=== PATIENT | male | born 1975 | race Caucasian/White ===

== ENCOUNTER 2017-01-10 11:39 | Emergency (ER) | payer MEDICAID, OTHER ==
[2017-01-10 12:02] VITALS: BP 132/82; PULSE 83; RESP 16; TEMP 98.1; O2SAT 97
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
[2017-01-10] MEDS ORDERED: TDAP ADULT 0.5 ML INJ (BOOSTRIX) IM ONE (12:30)
[2017-01-10] MEDS ORDERED: CEPHALEXIN 500 MG CAP PO ONE (12:49)
[2017-01-10] MEDS ORDERED: ceFAZolin 1 GM VIAL ONE (13:07)
== END 2017-01-10 13:40 | disposition home or self-care (01) ==
LOC: CED 11:39
DX: S61.412A Laceration without foreign body of left hand, initial encounter (principal); Z72.0 Tobacco use; W22.8XXA Striking against or struck by other objects, initial encounter; Y93.C2 Activity, hand held interactive electronic device
CPT/HCPCS: 73130-PO; 96365-PO; 96374-PO; 99214-PO; G0463-PO; J0690